=== PATIENT | male | born 1935 | race Two or more races ===

== ENCOUNTER 2023-02-11 17:18 | Emergency (ER) | payer OTHER ==
[~2023-02-11] VITALS: Ht 182.9 cm; Wt 114.0 kg
[2023-02-11 17:46] VITALS: O2SAT 97
[2023-02-11] MEDS ORDERED: KETOROLAC 30MG/ML VIAL IM ONE (19:45)
[2023-02-11 19:58] LABS: BASOPHILS % 0.6 % (0.0-2.0); EOSINOPHILS % 1.8 % (0.0-5.0); HEMATOCRIT. 34.7 % (42.0-52.0); HEMOGLOBIN. 11.5 g/dL (14.0-18.0); LYMPHOCYTES % 21.9 % (20.0-50.0); MEAN CORPUSCULAR HEMOGLOBIN 29.8 pg (28.0-32.0); MEAN CORPUSCULAR HGB CONC 33.1 g/dL (31.0-37.0); MONOCYTES % 7.5 % (2.0-8.0); NEUTROPHILS % 68.2 % (40.0-76.0); PLATELET 226 x1000/uL (130-400); RED BLOOD CELL COUNT 3.86 mill/uL (4.7-6.1); RED CELL DISTRIBUTION WIDTH 14.9 % (11.6-14.6)
[2023-02-11 20:06] LABS: PROTHROMBIN TIME 10.3 sec (9.6-11.0)
[2023-02-11 20:08] LABS: CHLORIDE 109 mEq/L (98-107); INDEX HEMOLYSI 1 (1-3); INDEX ICTERIC 1 (1-4); INDEX LIPEMIC 1 (1-3); POTASSIUM 4.4 mEq/L (3.5-5.1); SODIUM 136 mEq/L (136-145)
[2023-02-11 20:19] LABS: ALANINE AMINOTRANSFERASE 19 IU/L (13-61); ALBUMIN 3.8 g/dL (3.4-5.0); ASPARTATE AMINOTRANSFERASE 17 IU/L (15-37); BILIRUBIN TOTAL 0.5 mg/dL (0.1-1.0); CALCIUM 8.7 mg/dL (8.5-10.1); CARBON DIOXIDE 26 mEq/L (21-32); CREATININE 1.2 mg/dL (0.6-1.3); GLUCOSE 95 mg/dL (70-105); NT PRO B-TYPE NATRIURETIC PEP 32 pg/mL (5-125); PROTEIN TOTAL 8.5 g/dL (6.0-8.3); TROPONIN I HIGH SENSITIVITY 8 ng/L (<78); UREA NITROGEN BLOOD 23 mg/dL (7-21)
[2023-02-11] MEDS ORDERED: KETOROLAC 30MG/ML VIAL IM NR (22:30)
[2023-02-12 00:04] LABS: CLARITY URINE CLEAR (CLEAR); COLOR URINE YELLOW (YELLOW); GLUCOSE URINE NEGATIVE (NEGATIVE); KETONES URINE TRACE (NEGATIVE); LEUKOCYTE ESTERASE URINE NEGATIVE (NEGATIVE); NITRITE URINE NEGATIVE (NEGATIVE); OCCULT BLOOD URINE NEGATIVE (NEGATIVE); PH URINE 6.5 (4.5-8.0); PROTEIN URINE NEGATIVE (NEGATIVE); SPECIFIC GRAVITY URINE 1.019 (1.005-1.030)
[2023-02-12 06:48] VITALS: BP 154/88; PULSE 85; RESP 14; TEMP 97.9
== END 2023-02-12 06:49 | disposition home or self-care (01) ==
LOC: ER 17:18
DX: R53.1 Weakness (principal); I89.0 Lymphedema, not elsewhere classified; E11.9 Type 2 diabetes mellitus without complications; I10 Essential (primary) hypertension
CPT/HCPCS: 99285; 70450; 71045; 80053; 81003; 83880; 85025; 85610; 84484; 36415; 72170; 74176; 93005; 96372; J1885